=== PATIENT | male | born 1970 | race Caucasian/White ===

== ENCOUNTER 2016-09-06 06:28 | Outpatient (CLI) | payer MEDICARE, MEDICAID | END 2016-09-06 06:29 | disposition home or self-care (01) | DX: J40 Bronchitis, not specified as acute or chronic (principal) ==

== ENCOUNTER 2016-09-06 12:46 | Outpatient (CLI) | payer MEDICARE, MEDICAID | END 2016-09-06 12:47 | disposition home or self-care (01) | DX: J40 Bronchitis, not specified as acute or chronic (principal) ==

== ENCOUNTER 2016-12-20 14:23 | Outpatient (CLI) | payer MEDICARE, MEDICAID ==
--- NOTE | 2016-12-20 17:16 | XRAY Report ---
TWO VIEW CHEST: 12/20/2016 CLINICAL INDICATION: COPD. Frontal and lateral views of the chest demonstrate a normal cardiac silhouette. The lungs are hyperi nflated, compatible with COPD. No focal consolidation, effusion, or pneumothorax is present. IMPRESSION: COPD, BUT NO EVIDENCE OF ACUTE CARDIOPULMONARY DISEASE. NO SIGNIFICANT INTERVAL CHANGE FROM 09/06/2016. JOB #: [id number] EXT JOB #:[id number]
== END 2016-12-20 14:24 | disposition home or self-care (01) ==
LOC: DI.N 14:23
PROVIDERS: ATTEND Physician Assistant
DX: J44.9 Chronic obstructive pulmonary disease, unspecified (principal)
CPT/HCPCS: 71020

== ENCOUNTER 2018-04-09 11:43 | Outpatient (CLI) | payer MEDICARE, MEDICAID ==
--- NOTE | 2018-04-09 13:32 | XRAY Report ---
Reason: LOWER BACK PAIN Procedure Date: 04/09/2018 Accession Number: [id number] / [id number] Procedure: XRN - Lumbar Spine 2 View CPT Code: FULL RESULT: EXAM: LUMBOSACRAL SPINE RADIOGRAPHY EXAM DATE: 04/09/2018 12:12 PM. CLINICAL HISTORY: LOWER BACK PAIN. COMPARISONS: None. TECHNIQUE: 3 views. FINDINGS: Alignment: Normal. No spondylolisthesis or scoliosis. Bones: Five bda-rgf-aerkkyt lumbar vertebral bodies are present. No fractures or bone lesions. Disks: Mild multilevel loss of disk space height which is most pronounced at L1-L2 and L5-S1 with expected endplate changes. Facets: There is questionable pars defect at L5 with associated degenerative changes at L4 and L5. Sacroiliac Joints: Unremarkable. Soft Tissues: Normal. The visualized bowel gas pattern is normal. IMPRESSION: Overall mild degenerative changes with questionable pars defect at L5. RADIA
== END 2018-04-09 11:44 | disposition home or self-care (01) ==
LOC: DI.N 11:43
PROVIDERS: ATTEND Physician Assistant Medical
DX: M51.36 Other intervertebral disc degeneration, lumbar region (principal); M47.9 Spondylosis, unspecified
CPT/HCPCS: 72100

== ENCOUNTER 2018-04-30 16:41 | Outpatient (CLI) | payer MEDICARE, MEDICAID ==
[2018-04-30] MEDS ORDERED: GADOBUTROL 7.5 MMOL/7.5 ML VIAL ONE (17:05)
[2018-04-30] MEDS ORDERED: GADOBUTROL 7.5 MMOL/7.5 ML VIAL IVP ONE (17:26)
--- NOTE | 2018-05-01 13:33 | MRI Report ---
Reason: LUMBAR DISC DEGENERATION WITH NEUROLOGICAL MANIFES Procedure Date: 04/30/2018 Accession Number: [id number] / [id number] Procedure: MRI - Lumbar Spine W/WO CPT Code: FULL RESULT: EXAM: MRI LUMBAR SPINE WITHOUT AND WITH CONTRAST EXAM DATE: 04/30/2018 05:37 PM. CLINICAL HISTORY: Lumbar disk degeneration with neurological manifestation. COMPARISONS: Lumbar spine 2 view 04/09/2018 12:14 PM. TECHNIQUE: Multiplanar, multisequence T1-weighted and fluid-sensitive sequences of the lumbar spine from T12 to S1 before and after administration of intravenous contrast. Other: None. IV contrast: 7.5 mL of Gadavist. FINDINGS: Neurologic Structures: The conus terminates at L1-L2. The conus medullaris and cauda equina are unremarkable. Alignment: There is slight flattening of the lumbar lordosis. Bone Marrow: Five ghu-lno-eyxcwkq lumbar vertebral bodies are assumed. There is moderate endplate irregularity throughout the lumbar spine. There is Modic type I change at the anterior margin of the L3-L4 endplates. There are no other foci of marrow edema. Disk Levels/Facets: T12-L1: Unremarkable. L1-L2: Unremarkable. L2-L3: Unremarkable. L3-L4: Unremarkable. L4-L5: There is a small central disk protrusion causing minimal canal narrowing. The foramina are patent. L5-S1: There is a central and left paracentral disk protrusion causing mild canal narrowing. The foramina are patent. Spinal Canal: No enhancing masses within the spinal canal. No epidural abscess. There is a perineural cyst at S2. Musculature: Normal. No edema, abnormal enhancement, or fatty atrophy. Other: The visualized retroperitoneum is unremarkable. IMPRESSION: 1. Mild degenerative change from L3-L4 to L5-S1. 2. Small disk protrusions at L4-L5 and L5-S1 causing minimal to mild canal narrowing. No significant foraminal narrowing. Comment: The following findings are so common in adults without low back pain that while we report their presence, they must be interpreted with caution and in the context of the clinical situation. (Reference Roxannk et al, Spine 2001) Prevalence of findings in patients without low back pain: Disk degeneration (any evidence): 92% Disk desiccation/T2 signal loss: 83% Disk height loss: 56% Disk bulge: 64% Disk protrusion: 32% Annular tear/high intensity zone: 38% RADIA
== END 2018-04-30 16:42 | disposition home or self-care (01) ==
LOC: DI 16:41
PROVIDERS: ATTEND Physician Assistant Medical
DX: M51.06 Intervertebral disc disorders with myelopathy, lumbar region (principal); R26.9 Unspecified abnormalities of gait and mobility; G83.10 Monoplegia of lower limb affecting unspecified side
CPT/HCPCS: 72158; A9585